=== PATIENT | female | born 1935 | race Caucasian/White ===

== ENCOUNTER 2018-06-29 20:15 | Observation (INO) | payer OTHER ==
[~2018-06-29] VITALS: Ht 172.7 cm; Wt 63.6 kg
[~2018-06-29 20:15] MED LIST: ATENOLOL50 MG PO; HYDROCHLOROTH12.5 M3 PO; PREDNISONE5 MG PO; PREVACID OTC PO; predniSONE PO
[2018-06-29] MEDS ORDERED: PREDNISONE5 MG PO (20:29)
[2018-06-29 20:51] LABS: HEMATOCRIT 37.8 % (36.0-46.0); HEMOGLOBIN 13.2 G/DL (11.9-15.5); MCH 31.4 PG (29.0-34.0); MCHC 34.9 G/DL (30.0-36.0); PLATELET COUNT 210 K/uL (156-360); RBC DIS.WIDTH-CV 12.4 % (11.8-14.6)
[2018-06-29 21:04] LABS: CHLORIDE 105 mEq/L (99-109)
[2018-06-29 21:05] LABS: POTASSIUM 4.3 mEq/L (3.7-5.4); SODIUM 141 mEq/L (136-147)
[2018-06-29 21:06] LABS: GLUCOSE 104 mg/dL (70-99)
[2018-06-29 21:10] LABS: CREATININE 0.9 mg/dL (0.6-1.3); GFR ESTIMATE (CALCULATED) > 59 mL/min/
[2018-06-29 21:11] LABS: UREA NITROGEN (BUN) 17 mg/dL (9-23)
[2018-06-29 21:18] LABS: TROP-I INTERPRETATION NEGATIVE; TROPONIN-I < 0.01 ng/mL (0.0-0.30)
[2018-06-29] MEDS ORDERED: LO-DOSE ASPIRIN81 M2 PO (21:31)
[2018-06-30 00:22] LABS: TOTAL PROTEIN 6.4 g/dL (6.4-8.3)
[2018-06-30 00:24] LABS: TOTAL BILIRUBIN 0.6 mg/dL (0.0-1.0)
[2018-06-30 00:25] LABS: ALKALINE PHOSPHATASE 89 IU/L (3-129)
[2018-06-30 00:27] LABS: AST (GOT) 16 IU/L (2-34)
[2018-06-30 00:28] LABS: ALT (GPT) 11 IU/L (3-49); DIRECT BILIRUBIN 0.2 mg/dL (0.0-0.3)
[2018-06-30 00:29] LABS: LIPASE 58 U/L (1.0-51.0)
[2018-06-30 00:47] VITALS: BP 138/63
[2018-06-30 05:00] LABS: HEMATOCRIT 36.5 % (36.0-46.0); HEMOGLOBIN 12.4 G/DL (11.9-15.5); MCH 30.8 PG (29.0-34.0); MCV 90.6 FL (83-99); PLATELET COUNT 225 K/uL (156-360); RBC DIS.WIDTH-CV 12.6 % (11.8-14.6); RBC DIS.WIDTH-SD 41.8 % (39-53); RED BLOOD COUNT 4.03 M/uL (3.80-5.20); WHITE BLOOD COUNT 8.4 K/uL (4.1-10.2)
[2018-06-30 05:14] LABS: CHLORIDE 105 mEq/L (99-109); POTASSIUM 4.1 mEq/L (3.7-5.4); SODIUM 142 mEq/L (136-147)
[2018-06-30 05:16] LABS: GLUCOSE 95 mg/dL (70-99)
[2018-06-30 05:20] LABS: CREATININE 0.8 mg/dL (0.6-1.3); GFR ESTIMATE (CALCULATED) > 59 mL/min/
[2018-06-30 05:21] LABS: UREA NITROGEN (BUN) 14 mg/dL (9-23)
[2018-06-30 05:22] LABS: TROP-I INTERPRETATION NEGATIVE; TROPONIN-I 0.04 ng/mL (0.0-0.30)
[2018-06-30 08:46] LABS: TROP-I INTERPRETATION NEGATIVE; TROPONIN-I 0.02 ng/mL (0.0-0.30)
[2018-06-30 09:30] VITALS: BP 144/67
[2018-06-30] MEDS ORDERED: NITROSTAT0.4 MG SL (10:15)
== END 2018-06-30 12:12 | disposition home or self-care (01) ==
LOC: EME → EDBD 20:15 → EME 20:15 → EDOF 23:48 → ENRESERV 23:49 → 4SOUTH 06-30 00:27
PROVIDERS: Hospitalist
DX: R07.9 Chest pain, unspecified (principal); R91.1 Solitary pulmonary nodule; I10 Essential (primary) hypertension; M31.6 Other giant cell arteritis; E78.5 Hyperlipidemia, unspecified; Z86.73 Personal history of transient ischemic attack (TIA), and cerebral infarction without residual deficits; Z87.891 Personal history of nicotine dependence; Z82.0 Family history of epilepsy and other diseases of the nervous system; I35.0 Nonrheumatic aortic (valve) stenosis; I27.20 Pulmonary hypertension, unspecified; Z79.52 Long term (current) use of systemic steroids
CPT/HCPCS: 71046; 71275; 80048; 80076; 83690; 84484; 85027; 93005; 99281; 99284; G0378; J1644; J7512